=== PATIENT | female | born 1995 | race Two or more races ===

== ENCOUNTER 2022-09-04 08:13 | Outpatient (CLI) | payer OTHER ==
--- NOTE | 2022-09-06 09:41 | MRI Report ---
PROCEDURE: FOOT WO - RT INDICATIONS: RIGHT FOOT PAIN TECHNIQUE: Noncontrast sagittal T1 spin echo and T2 fast spin echo with fat saturation, long-axis T1 spin echo a nd T2 fast spin echo with fat saturation, short-axis proton density fast spin echo and T2 fast spin e cho with fat saturation through the forefoot. COMPARISON: None. FINDINGS: Image quality: Excellent. Bones and joints: Edematous and mildly fragmented appearance of the medial hallux sesamoid, which ma y secondary to an osseous contusion or nondisplaced fracture versus metatarsal sesamoid degenerative changes or sesamoiditis. No subluxation of the hallux sesamoids. No bone marrow contusions or metatar brittani stress fractures. No metatarsophalangeal joint degeneration. No intraosseous lesions. Soft tissues: The visualized plantar foot muscles demonstrate normal signal and bulk. Visualized fl exor and extensor tendons appear intact, without tenosynovitis. No soft tissue ganglion cysts or bur brittani fluid collections. Sagittal images demonstrate no evidence for plantar plate tears. IMPRESSION: Edematous and mildly fragmented appearance of the medial hallux sesamoid, which may seco ndary to an osseous contusion or nondisplaced fracture versus metatarsal-sesamoid degenerative change s or sesamoiditis. Reviewed by: Dav Carrasco MD on 09/06/2022 9:40 AM PDT Approved by: Dav Carrasco MD on 09/06/2022 9:40 AM PDT Station ID: [id number]
== END 2022-09-04 08:14 | disposition home or self-care (01) ==
LOC: DI 08:13
PROVIDERS: ATTEND Student in an Organized Health Care Education/Training Program
DX: S92.811G Other fracture of right foot, subsequent encounter for fracture with delayed healing (principal)